=== PATIENT | male | born 1975 | race Caucasian/White ===

== ENCOUNTER 2019-06-26 23:14 | Emergency (ER) | payer BC, SELFPAY ==
--- NOTE | ~2019-06-26 | XR_ITS ---
EXAMINATION: XR chest 1V portable DATE: 06/26/2019 23:56 INDICATION: Shortness of breath TECHNIQUE: frontal view of the chest was obtained. COMPARISON: Chest radiograph dated 09/13/2018 FINDINGS: The lungs remain clear with no focal airspace opacities, pulmonary edema, pleural effusion or pneumot horax. The cardiomediastinal silhouette is normal. Visualized bones and soft tissues are unremarkable . IMPRESSION: 1. No acute cardiopulmonary disease. Reviewed, dictated and finalized at location A.
[2019-06-26 23:25] VITALS: BP 185/105; PULSE 102; RESP 19; TEMP 36.7; O2SAT 99
--- NOTE | 2019-06-26 23:29 | ECG_ITS ---
Measurements Intervals [place] Rate: 97 P: 17 FL: 162 QRS: -5 QRSD: 101 T: 103 QT: 341 QTc: 434 Interpretive Statements SINUS RHYTHM INCOMPLETE RIGHT BUNDLE BRANCH BLOCK LEFT VENTRICULAR HYPERTROPHY AND ST-T CHANGE ST-T WAVE ABNORMALITY IN LATERAL LEADS- CONSIDER ISCHEMIA ABNORMAL ECG Electronically Signed On 06-27-2019 7:49:47 CDT by Luigi Caldwell D.O.
--- NOTE | 2019-06-26 23:30 | ED.URI ---
HPI - URI/Sore Throat General Chief Complaint: Upper Respiratory Infection Stated Complaint: sob, cough Time Seen by Provider: 06/26/19 23:27 Source: patient and RN notes reviewed Mode of arrival: ambulatory Limitations: no limitations History of Present Illness HPI Narrative: A 44 y/o male presents to the ED with a mild productive cough for the past 10 days. 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 He reports some intermittent SOB beginning today. He denies any N/V/D, weakness, or dizziness. MD elicited complaint: cough Onset (ago): day(s) (10) Severity: mild Context: other (Works as a pharmacist at [employer]) Associated symptoms: shortness of breath (intermittent) Treatments prior to arrival: none Related Data Allergies Allergy/AdvReac Type Severity Reaction Status Date / Time NADIYA Inhibitors Allergy Mild dry cough Verified 09/13/18 09:49 shellfish derived Allergy Unknown Verified 09/13/18 09:48 Review of Systems Review of Systems: All systems reviewed & are unremarkable except as noted in HPI and below Constitutional: Constitutional: Denies weakness Respiratory: Respiratory: Reports cough (productive) and Reports dyspnea (intermittent) Gastrointestinal: Gastrointestinal: Denies diarrhea, Denies nausea and Denies vomiting Neurologic: Denies dizziness PMFSH Past Medical History Medical History (Updated 06/27/19 @ 00:33 by Anshu Enriquez MD) H/O: HTN (hypertension) Surgical History Surgical History (Updated 06/26/19 @ 23:40 by Eric Anglin) No history of previous surgery Social History Social History (Updated 06/26/19 @ 23:40 by Eric Anglin) Smoking status: Former smoker Exam Const: General: healthy appearing and no acute distress Nutritional Appearance: well nourished HENMT: Mouth: Yes lip normal and Yes moist mucous membranes Eyes: Conjunctivae: conjunctivae normal Pupils: Equal, round and reactive pupils present Resp: Effort & Inspection: normal respiratory effort Auscultation: clear to auscultation bilaterally Cardio: Rate: regular rate Rhythm: regular rhythm Heart sounds: no murmurs GI: GI Palp: Yes Soft to palpation and No Tenderness to palpation present (GI) Auscultation: normal bowel sounds Back/Spine/Pelvis: Other: Full ROM. Skin: General skin exam: normal color, dry skin and other (warm) Neuro: General: patient oriented x3 (alert) Speech: normal speech Extrem: General: full ROM Psych: Mental Status: mental status grossly normal Affect: normal affect Course Vital Signs Vital signs: Vital Signs Temperature 36.7 C 06/26/19 23:25 Pulse Rate 102 H 06/26/19 23:25 Respiratory Rate 19 06/26/19 23:25 Blood Pressure 185/105 H 06/26/19 23:25 Pulse Oximetry 99 06/26/19 23:25 Temperature 36.7 C 06/26/19 23:25 Pulse Rate 85 06/27/19 00:43 Respiratory Rate 23 H 06/27/19 00:43 Blood Pressure 168/90 H 06/27/19 00:43 Pulse Oximetry 98 06/27/19 00:43 MDM - URI/Sore Throat MDM Narrative Medical decision making narrative: He appears well. CXR clear. He does not require admission. He does not meet any criteria for COVID testing. I will discharge him home to self isolate. Differential Diagnosis Differential diagnosis: Likely upper respiratory infection, viral infection, bronchitis and influenza Medical Records Attestation: I reviewed the patient's medical records. Lab Data Attestation: I reviewed the patient's lab results. Labs: Influenza A Screen Negative Reference Range: Negative Influenza B Screen Negative Reference Range: Negative Discharge Plan Discharge Clinical Impression: Upper respiratory infection Qualifiers: URI type: unspecified URI Qualified Code(s): J06.9 - Acute upper respiratory infection, unspecified Patient Disposition: Home, Self-Care Condition: Stable Instru
[2019-06-27 00:10] VITALS: BP 178/97; PULSE 85; RESP 16; O2SAT 99
[2019-06-27 00:43] VITALS: BP 168/90; PULSE 85; RESP 23; O2SAT 98
== END 2019-06-27 00:45 | disposition home or self-care (01) ==
PROVIDERS: Emergency Provider Emergency Medicine; PCP Family Medicine Sports Medicine
DX: J06.9 Acute upper respiratory infection, unspecified (principal); I10 Essential (primary) hypertension; Z87.891 Personal history of nicotine dependence; I45.10 Unspecified right bundle-branch block; I51.7 Cardiomegaly; R94.31 Abnormal electrocardiogram [ECG] [EKG]
CPT/HCPCS: 71045; 87804; 93005; 99283

== ENCOUNTER 2019-12-01 09:38 | Outpatient (CLI) | payer BC, SELFPAY ==
--- NOTE | ~2019-12-01 | US_ITS ---
EXAMINATION: US right upper quadrant DATE: 12/01/2019 10:23 INDICATION: Right upper quadrant abdominal pain. Nausea. TECHNIQUE: Multiple grayscale and Doppler ultrasound images of the abdomen were obtained. COMPARISON: CT abdomen and pelvis 09/13/2018 FINDINGS: The visualized portions of the head and body of the pancreas are normal. There is diffuse h epatic steatosis. No liver surface nodularity. The gallbladder is normal in size. No gallstones or ga llbladder wall thickening. There was no sonographic Conteh sign. The common duct is normal and measur es 4 mm. IMPRESSION: 1. Diffuse hepatic steatosis. Reviewed, dictated and finalized at location A.
[2019-12-01 11:09] LABS: Hematocrit 43.5 % (42.0-52.0); Hemoglobin 15.5 g/dL (14.0-18.0); Mean Corpuscular HGB Conc 35.6 g/dl (32-36); Mean Corpuscular Hemoglobin 30.8 pg (26-34); Mean Corpuscular Volume 86.5 fl (80-100); Mean Platelet Volume 12.2 fl (7.4-10.4); Platelet Count Result 211 k/mm3 (150-375); Red Blood Count 5.03 M/mm3 (4.6-6.20); Red Cell Distribution Width 12.1 % (11.5-14.5); White Blood Count 6.2 K/mm3 (4.5-10.0)
[2019-12-01 11:19] LABS: Add Urine Microscopic? YES; Appearance Urine Clear (Clear); Bilirubin Urine Negative (Negative); Blood Urine 2+ (Negative); Color Urine Yellow (Yellow); Glucose Urine UA Negative (Negative); Ketones Urine Negative (Negative); Leukocyte Esterase Ur Negative LEU/UL (NEGATIVE); Mucus Urine Rare /lpf; Nitrate Urine Negative (Negative); Protein Urine Negative (Negative); Specific Grav Ur 1.013 (1.001-1.035); Squamous Epithelial Cell Urine Rare /hpf (Few); Urobilinogen Urine Negative mg/dL (<2.0); WBC Urine 0-3 /hpf (0-3)
[2019-12-01 11:24] LABS: Alanine Aminotransferase 44 U/L (4-50); Albumin Level 4.9 g/dL (3.5-5.1); Alkaline Phosphatase 76 U/L (38-126); Amylase 58 U/L (30-110); Anion Gap 8 mmol/L (8-16); Aspartate Amino Transferase 30 U/L (17-59); Bilirubin,Total 0.7 mg/dL (0.2-1.3); Blood Urea Nitrogen 14 mg/dL (9-20); Calcium 9.5 mg/dL (8.4-10.2); Carbon Dioxide 31 mmol/L (22-30); Chloride 99 mmol/L (98-107); Estimated Glomerular Filt Rate > 60; Glucose 120 mg/dL (75-110); Lipase 41 U/L (23-300); Potassium 3.9 mmol/L (3.4-5.0); Sodium 138 mmol/L (137-145)
== END 2019-12-01 09:39 | disposition home or self-care (01) ==
LOC: ANHIMG 09:46
PROVIDERS: PCP Family Medicine Sports Medicine; Visit Provider Family Medicine Sports Medicine
DX: R10.11 Right upper quadrant pain (principal); K76.0 Fatty (change of) liver, not elsewhere classified
CPT/HCPCS: 36415; 76705; 80053; 81001; 82150; 83036; 83690; 84443; 85027

== ENCOUNTER → 2020-01-12 08:52 | Outpatient (CLI) | payer BC, SELFPAY ==
--- NOTE | ~2020-01-12 | XR_ITS ---
EXAMINATION: XR abdomen/kub 1V INDICATION: Hematuria and right flank pain TECHNIQUE: Supine views of the abdomen were obtained on 2 radiographs. COMPARISON: None FINDINGS: Phleboliths are noted in the pelvis. No urolithiasis is identified. The bowel gas pattern i s normal. There is a moderate volume of colonic stool. IMPRESSION: 1. No urolithiasis identified. Reviewed, dictated and finalized at location A.
--- NOTE | ~2020-01-12 | CT_ITS ---
EXAMINATION: CT abdomen pelvis wo con DATE: 01/12/2020 09:16 INDICATION: Hematuria and right flank pain TECHNIQUE: Computed tomography (CT) of the abdomen and pelvis was performed without intravenous contr ast. The dose-length product (DLP) was 1175.59 mGy-cm. Automated exposure control and iterative recon struction technique were employed. COMPARISON: 09/13/2018 FINDINGS: The lung bases are clear. The heart size is normal. There is a small sliding hiatal hernia. The liver, spleen, pancreas, gallbladder, and adrenal glands are normal. The kidneys are unremarkabl e. No stones are identified in the kidneys, ureters, or bladder. There is no hydronephrosis or hydrou reter. No pathologically enlarged abdominal or pelvic lymph nodes are identified. There is no free in traperitoneal gas or evidence of bowel obstruction. There is a moderate volume of stool in the rectum . The appendix is normal. There is a small fat-containing umbilical hernia. IMPRESSION: 1. No CT correlate for the patient's symptoms. No urolithiasis identified. Reviewed, dictated and finalized at location A.
== END ==
PROVIDERS: PCP Family Medicine Sports Medicine; Visit Provider Nurse Practitioner Adult Health
DX: R10.9 Unspecified abdominal pain (principal)
CPT/HCPCS: 74018; 74176

== ENCOUNTER 2024-04-29 14:19 | Outpatient (CLI) | payer BC, SELFPAY ==
--- NOTE | ~2024-04-29 | US_ITS ---
EXAMINATION: US scrotum doppler DATE: 04/29/2024 15:28 INDICATION: TESTICULAR PAIN . TECHNIQUE: Grayscale and Doppler ultrasound images of the testes were obtained. COMPARISON: None. FINDINGS: The right testis measures 4.0 x 1.6 x 2.6 cm. The left testis measures 3.6 x 1.7 x 2.5 cm. No testicular mass. There is normal vascular flow to both testes. The right epididymis is normal with normal vascular flow. The left epididymis is normal with normal vascular flow. There is no varicocel e or hydrocele. Dermal thickening and generalized soft tissue swelling. IMPRESSION: Dermal thickening and scrotal soft tissue swelling, otherwise normal scrotal ultrasound findings. Reviewed, dictated and finalized at location K. [employer] INSPECTOR IMPRESSION: Dermal thickening and scrotal soft tissue swelling, otherwise normal scrotal ul trasound findings.
--- OUTSIDE RECORDS SUMMARY | 2024-04-29 15:02 | XMS_ITS | Clinical Summary ---
Author Organization [facility] Address [address] [place] [address] Care Team Providers Care Proofer Prepress Name Role Phone Unavailable Primary Care Provider Unavailabl e Source Comments [facility],non-owned Affiliates and Associated Physician Practices is amultiple site organization consisting of ambulatory clinics and hospital sitesin [place], [place], [place] and [place]. This disclosure is being madepursuant to the Care Everywhere program and may not contain all information available regarding this patient. Last updated 17.[facility] Social History Tobacco Use Types Packs/Day Years Used Date Smoking Tobacco: Never Assessed Sex and Gender Information Value Date Recorded Sex Assigned at Not on file Gender Identity Not on file Sexual Orientation Not on file Plan of Treatment Health Maintenance Due Date Last Done Comments COLOGUARD (AGES 45-75) - COL ON CA SCREENING 1973 COLON MONITORING 1973 COLONOSCOPY - COLON CA SCREENING 1973 CT COLONOGRAPHY - COLON CA SCREENING 1973 Colorectal Cancer Screening 1973 FIT - COLON CA SCREENING 1973 FLEX SIG - COLON CA SCREENING 1973 LIPID TESTING 1973 HIV SCREENING 02/07/1988 HEPATITIS C SCREENING 02/02/1991 DTAP/TDAP/TD VACCINES (1 - Tdap) 02/07/1992 HEPATITIS B VACCINE (1 of 3 - 19+ 3-dose series) 02/07/1992 PNEUMOCOCCAL VACCINE 50+ (1 of 1 - PCV) 2023 ZOSTER VACCINE (1 of 2) 2023 COVID-19 VACCINE (1 - 2023-2 5 season) 2023 INFLUENZA VACCINE (#1) 2023 DEPRESSION SCREENING 03/31/2024 HIB VACCINE Aged Out No longer eligi ble based on patient's age to complete this topic HPV VACCINE Aged Out No longer eligi ble based on patient's age to complete this topic MENINGOCOCCAL (Group B) VACCINE Aged Out No longer eligible based on patient's age to complete this topic MENINGOCOCCAL VACCINE Aged Out No [place] eligible based on patient's age to complete this topic PNEUMOCOCCAL VACCINE Aged Out No long er eligible based on patient's age to complete this topic
--- OUTSIDE RECORDS SUMMARY | 2024-04-29 15:02 | XMS_ITS | Encounter Summary ---
Author Organization [facility] Address [address] [place] [address] Care Team Providers Care Applications Programmer Name Role Phone Unavailable Primary Care Provider Unavailkrzysztof e Encounter Details Date Type Department Care Team (Late st Contact Info) Description 05/31/2019 Lab Requisition [facility] [address] [facility] [place] [address] Michelle Roach MD [address] [facility] [address] [place] [address] Social History Tobacco Use Types Packs/Day Years Used Date Smoking Tobacco: Never Assessed Sex and Gender Information Value Date Recorded Sex Assigned at Not on file Gender Identity Not on file Sexual Orientation Not on file documented as of this encounter Plan of Treatment Not on file documented as of this encounter Procedures Procedure Name Priority Date/Time Associated Diagnosis Comments DERMATOPATHOLOGY Routine 05/28/2019 12:0 0 AM HOSPITAL LABORATORY TECHNICIAN documented in this encounter Results * DERMATOPATHOLOGY (05/28/2019 12:00 AM HOSPITAL LABORATORY TECHNICIAN) Case Report Dermatopathology Report ? Case: [id number] ? Authorizing Provider: ??Michelle Roach MD ?Collected: ? 05/28/2019 12:00 AM ? Ordering Location: ? [facility] ?Received: ?05/31/2019 08:26 AM ? Pathologist: ? Yash Beaver MD ? Specimen: ?Skin, left shaft of penis ? 0 7:20 PM CDT DERMATOPATHOLOGY LABORATORY Addendum 1 Powered Now Histology Analysis HPV RNA MEGAN Panel Accession / CaseNo: [id number] / [id number] HPV RNA MEGAN 16/18 (High Risk): Not Detected HPV RNA MEGAN High Risk Cocktail: Not Detected HPV RNA MEGAN Low Risk Cocktail: Not Detected A copy the report will be faxed separately. 0 7:20 PM T DERMATOPATHOLOGY LABORATORY Addendum electronically signed by Yash Beaver MD on 06/09/2019 at 7:20 PM Final Diagnosis Specimen A. SKIN, left shaft of penis: CONDYLOMA ACUMINATUM (A63.0) (see microscopic description and comment) 0 7:20 PM T DERMATOPATHOLOGY LABORATORY Clinical History SK. 0 7:20 PM CDT DERMATOPATHOLOGY LABORATORY Gross Description Specimen A: Received is one formalin filled container labeled with the patient's name and designated left shaft of penis. The specimen consists of a shave biopsy measuring 56e55x1 mm, bisected. Jar 0. 0 7:20 PM CDT DERMATOPATHOLOGY LABORATORY Microscopic Description Specimen A. SKIN, left shaft of penis: There is acanthosis with mild papillomatosis and hyperkeratosis. There are some vacuolated koilocytes present with coarse keratohyalin granules. An immunostain for Mib-1 highlights proliferating keratinocytes confined to the basal layer of the epidermis. Additional deeper sections were obtained and reviewed. COMMENT: At the request of the ordering clinician, this specimen will be sent out for Human Papilloma Virus testing and the results reported in an addendum. 0 7:20 PM CDT DERMATOPATHOLOGY LABORATORY Disclaimer An external and internal positive and negative controls are appropriate for the histochemical, immunohistochemical and immunofluorescence stain(s) in this case (if any), except where stated explicitly. The performance characteristics of the stain(s) cited in this report were developed and its performance characteristic determined by the Dermatopathology Laboratory at [facility], directed by Dr. Thai Beaver. These tests need not be, and therefore are not, approved by the [place] Food and Drug Administration. The tests are used for clinical purposes. Billing Codes Specimen Charges Stain Charges 56186 1 09343 1 0 7:20 PM CDT DERMATOPATHOLOGY LABORATORY Embedded Images 0 7:20 PM CDT DERMATOPATHOLOGY LABORATORY Pathology/Cytolog y TISSUE SPECIMEN FROM SKIN / Unknown 05/28/2019 05/31/2019 8:26 AM HOSPITAL LABORATORY TECHNICIAN Michelle Roach MD LAB - PATHOLOGY/CYTO LOGY ORDERABLES DERMATOPATHOLOGY LABORATORY [facility] - Department of Dermatology [address] 5th Floor Lab [address] [phone] documented in this encounter Visit Diagnoses Not on filedocumented in this encounter
--- OUTSIDE RECORDS SUMMARY | 2024-04-29 15:02 | XMS_ITS | Patient Health Summary ---
Author Organization [facility] Address [address] [place] [address] Care Team Providers Care Online Marketing Manager Name Role Phone Unavailable Primary Care Provider Unavailkrzysztof e Note from [facility],non-owned Affiliates and Associated Physician Practices is amultiple site organization consisting of ambulatory clinics and hospital sitesin [place], [place], [place] and [place]. This disclosure is being madepursuant to the Care Everywhere program and may not contain all information available regarding this patient. Last updated 17.[facility] Social History Tobacco Use Types Packs/Day Years Used Date Smoking Tobacco: Never Assessed Sex and Gender Information Value Date Recorded Sex Assigned at Not on file Gender Identity Not on file Sexual Orientation Not on file Procedures * DERMATOPATHOLOGY(Performed 10/27/2023) * DERMATOPATHOLOGY(Performed 09/11/2022) * DERMATOPATHOLOGY(Performed 09/04/2020) * DERMATOPATHOLOGY(Performed 05/28/2019) Results * DERMATOPATHOLOGY (10/27/2023 8:13 AM CDT) Only the most recent of4 resultswithin the time period is included. Case Report Dermatopathology Report ? Case: [id number] ? Authorizing Provider: ??Brianna Rae MD ? Collected: ? 10/27/2023 08:13 AM ? Ordering Location: ? [facility] - ??Received: ?10/27/2023 04:22 PM ? DermPath Lab ? Pathologist: ? Linda Mejía, ? MD ? Specimen: ?Skin, left post scalp ? 4 11:43 AM CDT DERMATOPATHOLOGY LABORATORY Final Diagnosis Specimen A. SKIN, left post scalp: SEBORRHEIC KERATOSIS, INFLAMED (L82.0) 4 11:43 AM CDT DERMATOPATHOLOGY LABORATORY Clinical History Nevus r/o atypia, irritated 4 11:43 AM CDT DERMATOPATHOLOGY LABORATORY Gross Description Specimen A: Received is one formalin filled container labeled with the patient's name and designated left post scalp. The specimen consists of a shave biopsy measuring [id number] mm. Jar 0. 4 11:43 AM CDT DERMATOPATHOLOGY LABORATORY Microscopic Description Specimen A. SKIN, left post scalp: There is hyperkeratosis, parakeratosis, papillomatosis, and acanthosis of the epidermis. There is a lymphohistiocytic infiltrate within the papillary dermis that is focally lichenoid. 4 11:43 AM CDT DERMATOPATHOLOGY LABORATORY Disclaimer An external and internal positive and negative controls are appropriate for the histochemical, immunohistochemical and immunofluorescence stain(s) in this case (if any), except where stated explicitly. The performance characteristics of the stain(s) cited in this report were developed and its performance characteristic determined by the Dermatopathology Laboratory at [facility], directed by Dr. Thai Beaver. These tests need not be, and therefore are not, approved by the [place] Food and Drug Administration. The tests are used for clinical purposes. Billing Codes Specimen Charges Stain Charges 67624 1 4 11:43 AM CDT DERMATOPATHOLOGY LABORATORY Embedded Images 4 11:43 AM CDT DERMATOPATHOLOGY LABORATORY Pathology/Cytolo gy TISSUE SPECIMEN FROM SKIN / Unknown 10/27/2023 8:13 AM CDT 10/27/2023 4:22 PM CDT Brianna Rae MD LAB - PATHOLOGY/CYT OLOGY ORDERABLES DERMATOPATHOLOGY LABORATORY [facility] - Department of Dermatology [address], [address] [phone]
--- OUTSIDE RECORDS SUMMARY | 2024-04-29 15:02 | XMS_ITS | Encounter Summary ---
Author Organization [facility] Address [address] [place] [address] Care Team Providers Care Gang Bore Operator Name Role Phone Unavailable Primary Care Provider Unavailabl e Encounter Details Date Type Department Care Team (Late st Contact Info) Description 10/27/2023 Lab Requisition [facility] - [facility] Lab [address] [facility] [address] [place] [address] Brianna Rae MD [address] [facility] [address] [place] [address] Social History Tobacco Use Types Packs/Day Years Used Date Smoking Tobacco: Never Assessed Sex and Gender Information Value Date Recorded Sex Assigned at Not on file Gender Identity Not on file Sexual Orientation Not on file documented as of this encounter Plan of Treatment Not on file documented as of this encounter Procedures Procedure Name Priority Date/Time Associated Diagnosis Comments DERMATOPATHOLOGY Routine 10/27/2023 8:13 AM CDT documented in this encounter Results * DERMATOPATHOLOGY (10/27/2023 8:13 AM CDT) Case Report Dermatopathology Report ? Case: [id number] ? Authorizing Provider: ??Brianna Rae MD ? Collected: ? 10/27/2023 08:13 AM ? Ordering Location: ? [facility] - ??Received: ?10/27/2023 04:22 PM [...] specimen consists of a shave biopsy measuring 80z71z5 mm. Jar 0. 4 11:43 AM CDT [...] characteristic determined by the Dermatopathology Laboratory at [facility], directed by Dr. Thai Beaver. These tests need not be, and therefore are not, approved by the [place] Food and Drug Administration. The tests are used for clinical purposes. Billing Codes Specimen Charges Stain Charges 08022 1 4 11:43 AM CDT DERMATOPATHOLOGY LABORATORY Embedded Images 4 11:43 AM CDT DERMATOPATHOLOGY LABORATORY Pathology/Cytolo gy TISSUE SPECIMEN FROM SKIN / Unknown 10/27/2023 8:13 AM CDT 10/27/2023 4:22 PM CDT Brianna Rae MD LAB - PATHOLOGY/CYT OLOGY ORDERABLES DERMATOPATHOLOGY LABORATORY [facility] - Department of Dermatology [address] [phone] documented in this encounter Visit Diagnoses Not on filedocumented in this encounter
--- OUTSIDE RECORDS SUMMARY | 2024-04-29 15:02 | XMS_ITS | Patient Health Record ---
Author Organization [facility] Address [address] [facility] [address] [place] [address] Care Team Providers Care Club Steward Name Role Phone Howie Lorenzo MD Primary Care Provider Unavailab Carmelo Elmore Unavailable [phone] Reason For Referral No Information Medications Medication SIG (Take, Route, Fr equency, Duration) Notes Start Date End Date Status Lin[place] 290 MCG TAKE 1 CAPSULE BY [facility] DAILY ON EMPTY STOMACH (AT LEAST 30 MIN BEFORE FIRST MAIN MEAL OF THE DAY) for 30 Active Problems Problem Type SNOMED Code ICD Code Onset Dates Problem Status W/U Status Risk Notes Problem Abdominal pain (54233183) Abdominal pain (R10.9) Active confirmed Plan Of Treatment Pending Test Test Name Order Date CT Scan Abdomen and Pelvis without contr ast 08/15/2021 Insurance Providers Payer Name Payer Address Payer Phone Subscriber Number Group Number Insured Name Patient Relationship to Insured Coverage Start Date Coverage End Date [place] [address] [address] [place] [phone] [id number] Cliff Pacheco Self - patient is the insured
--- OUTSIDE RECORDS SUMMARY | 2024-04-29 15:02 | XMS_ITS | Referral Summary ---
Author Organization [facility] Address [address] [place] [address] Care Team Providers Care Golf Ball Cover Treater Name Role Phone Unavailable Primary Care Provider Unavailabl e Source Comments [facility],non-owned Affiliates and Associated Physician Practices is amultiple site organization consisting of ambulatory clinics and hospital sitesin [place], [place], [place] and [place]. This disclosure is being madepursuant to the Care Everywhere program and may not contain all information available regarding this patient. Last updated 17.[facility] Social History Tobacco Use Types Packs/Day Years Used Date Smoking Tobacco: Never Assessed Sex and Gender Information Value Date Recorded Sex Assigned at Not on file Gender Identity Not on file Sexual Orientation Not on file Plan of Treatment Not on file
--- OUTSIDE RECORDS SUMMARY | 2024-04-29 15:02 | XMS_ITS | Encounter Summary ---
Author Organization [facility] Address [address] [facility] [place] [address] Care Team Providers Care Food Service Clerk Name Role Phone Unavailable Primary Care Provider Unavailkrzysztof e Encounter Details Date Type Department Care Team (Late st Contact Info) Description 09/11/2022 Lab Requisition [facility] [address] [place] [address] Michelle Roach MD [address] [facility] [address] [place] [address] Social History Tobacco Use Types Packs/Day Years Used Date Smoking Tobacco: Never Assessed Sex and Gender Information Value Date Recorded Sex Assigned at Not on file Gender Identity Not on file Sexual Orientation Not on file documented as of this encounter Plan of Treatment Not on file documented as of this encounter Procedures Procedure Name Priority Date/Time Associated Diagnosis Comments DERMATOPATHOLOGY Routine 09/11/2022 10:2 1 AM CDT documented in this encounter Results * DERMATOPATHOLOGY (09/11/2022 10:21 AM CDT) Case Report Dermatopathology Report ? Case: [id number] ? Authorizing Provider: ??Michelle Roach MD ?Collected: ? 09/11/2022 10:21 AM ? Ordering Location: ? [facility] ? Received: ?09/12/2022 06:52 AM ? Pathologist: ? Johanna Rocha MD ? Specimen: ?Skin, post neck ? 3 12:32 PM CDT DERMATOPATHOLOGY LABORATORY Final Diagnosis Specimen A. SKIN, post neck: INTRADERMAL MELANOCYTIC NEVUS (D22.4) 3 12:32 PM T DERMATOPATHOLOGY LABORATORY Clinical History IRRITATED NEVUS; FLESH COLORED PAPULE 3 12:32 PM CDT DERMATOPATHOLOGY LABORATORY Gross Description Specimen A: Received is one formalin filled container labeled with the patient's name and designated post neck. The specimen consists of a shave biopsy measuring 5x3x2 mm. Jar 0. 3 12:32 PM T DERMATOPATHOLOGY LABORATORY Microscopic Description Specimen A. SKIN, post neck: There are nests of cytologically bland melanocytes within the dermis that mature with depth. 3 12:32 PM T DERMATOPATHOLOGY LABORATORY Disclaimer An external and internal positive and negative controls are appropriate for the histochemical, immunohistochemical and immunofluorescence stain(s) in this case (if any), except where stated explicitly. The performance characteristics of the stain(s) cited in this report were developed and its performance characteristic determined by the Dermatopathology Laboratory at [facility], directed by Dr. Thai Beaver. These tests need not be, and therefore are not, approved by the [place] Food and Drug Administration. The tests are used for clinical purposes. Billing Codes Specimen Charges Stain Charges 07350 1 3 12:32 PM CDT DERMATOPATHOLOGY LABORATORY Embedded Images 3 12:32 PM CDT DERMATOPATHOLOGY LABORATORY Pathology/Cytolo gy TISSUE SPECIMEN FROM SKIN / Unknown 09/11/2022 10:21 AM CDT 09/12/2022 6:52 AM CDT Michelle Roach MD LAB - PATHOLOGY/CYTO LOGY ORDERABLES DERMATOPATHOLOGY LABORATORY [facility] - Department of Dermatology [facility] Medicine [address] [place] [address], [address] [phone] documented in this encounter Visit Diagnoses Not on filedocumented in this encounter
== END 2024-04-29 14:20 | disposition home or self-care (01) ==
PROVIDERS: PCP Family Medicine; Visit Provider Nurse Practitioner
DX: N50.89 Other specified disorders of the male genital organs (principal); N50.819 Testicular pain, unspecified
CPT/HCPCS: 76870; 93976